=== PATIENT | female | born 1940 | race Caucasian/White ===

== ENCOUNTER → 2019-03-07 | Outpatient (CLI) | payer OTHER ==
--- NOTE | 2019-03-07 12:26 | 2DMMODE ---
[facility] [place] [address] 2 D/M-MODE ECHOCARDIOGRAM Name: SHEN BRITTON Room #: REG [facility]#: [id number] Admission: 03/07/19 Attend Phys: Tayo Salter Discharge: Date of : 38 Date of Service: 03/07/19 1226 Report #: [id number] THIS REPORT FOR: //name// APPROVED REPORT Study performed: 03/07/2019 11:20:28 EXAM: Comprehensive 2D, Doppler, and color-flow Echocardiogram Patient Location: Out-Patient Room #: Echo lab 2 Status: routine BSA: 1.65 HR: 69 bpm BP: 138/88 mmHg Rhythm: NSR Other Information Study Quality: Good Indications CVA/TIA Echo Enhancing Agent Indication: Rule out Shunt Agent(s) / Amount(s) Used: Agitated Saline 7 cc 2D Dimensions RVDd: 28.54 mm IVSd: 10.34 (7-11mm) LVOT Diam: 19.35 (18-24mm) LVDd: 38.24 mm PWd: 10.42 (7-11mm) Ascending Ao: 31.52 (22-36mm) LVDs: 26.52 (25-40mm) Aortic Root: 28.09 mm IVC: 12.00 mm Volumes Left Atrial Volume (Systole) Single Plane 4CH: 34.32 mL Single Plane 2CH: 40.83 mL LA ESV Index: 27.00 mL/m2 Aortic Valve AoV Peak Jason.: 1.25 m/s AO Peak Gr.: 6.20 mmHg LVOT Max P.55 mmHg LVOT Max V: 0.94 m/s OSORIO Vmax: 2.22 cm2 [facility] [address] [place] [address] 2 D/M-MODE ECHOCARDIOGRAM Name: SHEN BRITTON [id number] Admission: 03/07/19 Attend Phys: Tayo Salter Discharge: Date of : 38 Date of Service: 03/07/19 1226 Report #: [id number] Mitral Valve E/A Ratio: 0.6 MV Decel. Time: 361.79 ms MV E Max Jason.: 0.59 m/s MV A Jason.: 0.93 m/s MV PHT: 104.92 ms IVRT: 175.32 ms Pulmonary Valve PV Peak Jason.: 0.76 m/s PV Peak Gr.: 2.33 mmHg Pulmonary Vein P Vein S: 0.66 m/s P Vein A: 0.45 m/s P Vein D: 0.28 m/s P Vein A Dur.: 152.2 msec P Vein S/D Ratio: 2.36 Tricuspid Valve TR Peak Jason.: 2.54 m/s TR Peak Gr.: 25.81 mmHg PA Pressure: 30.00 mmHg Left Ventricle The left ventricle is normal size. There is normal LV segmental wall motion. There is normal left ventricular wall thickness. Left ventricular systolic function is normal. The left ventricular ejection fraction is within the normal range. LVEF is 55-60%. Grade I - abnormal relaxation pattern. Right Ventricle The right ventricle is normal size. The right ventricular systolic function is normal. Atria The left atrium size is normal. Interatrial septum is intact without evidence of ASD or PFO. The right atrium size is normal. Aortic Valve The aortic valve is normal in structure. No aortic regurgitation is present. There is no aortic valvular stenosis. Mitral Valve The mitral valve is normal in structure. Trace mitral regurgitation. No evidence of mitral valve stenosis. Tricuspid Valve The tricuspid valve is normal in structure. There is trace tricuspid [facility] [address] [place] [address] 2 D/M-MODE ECHOCARDIOGRAM Name: SHEN BRITTON Room #: REG [facility]#: [id number] Admission: 03/07/19 Attend Phys: Tayo Salter Discharge: Date of : 38 Date of Service: 03/07/19 1226 Report #: [id number] regurgitation. Estimated PAP 30 mmHg. Pulmonic Valve The pulmonary valve is normal in structure. Trace pulmonic regurgitation. Great Vessels The aortic root is normal in size. IVC is normal in size and collapses >50% with inspiration. Pericardium There is no pericardial effusion. <Conclusion> The left ventricle is normal size. There is normal left ventricular wall thickness. Left ventricular systolic function is normal. Grade I - abnormal relaxation pattern. The right ventricle is normal size. The left atrium size is normal. Interatrial septum is intact without evidence of ASD or PFO. The aortic valve is normal in structure. Trace mitral regurgitation. There is trace tricuspid regurgitation. Estimated PAP 30 mmHg. <ELECTRONICALLY SIGNED> By: Irving Stroud MD 03/07/19 1226 1226 1226 Irving Stroud MD /INF
== END ==
LOC: CV 11:07
DX: G45.9 Transient cerebral ischemic attack, unspecified (principal)

== ENCOUNTER → 2019-03-09 | Outpatient (CLI) | payer OTHER ==
--- NOTE | ~2019-03-09 | P ---
[facility] [place] [address] PROCEDURE REPORT Name: SHEN BRITTON Room #: REG [facility] Ricardo.#: [id number] Admission: 03/09/19 Attend Phys: Tayo Salter MD Discharge: Date of : 38 Report #: [id number] THIS REPORT FOR: //name// CC: Tayo Murdock PROCEDURE: Implantable loop recorder. PREOPERATIVE DIAGNOSIS: Transient ischemic attack. POSTOPERATIVE DIAGNOSIS: Transient ischemic attack. DESCRIPTION OF PROCEDURE: The patient underwent informed consent. She was prepped in a sterile fashion. I injected lidocaine at the incision site. Incision was made. Device was checked under the skin. A single layer of suture was delivered under the skin and surgical glue was placed on the outer skin layer. There were no procedure related complications. The implanted device was a [employer] model #3500, serial #[id number]. R waves were 0.6 millivolts. CONCLUSIONS: Successful implantable loop recorder insertion. By: [id number] Tayo Salter MD /nt
[2019-03-09 11:44] VITALS: BP 116/57
== END | disposition home or self-care (01) ==
LOC: CATH 11:30
DX: G45.9 Transient cerebral ischemic attack, unspecified (principal); Z98.890 Other specified postprocedural states; Z88.8 Allergy status to other drugs, medicaments and biological substances

== ENCOUNTER → 2019-09-04 | Outpatient (CLI) | payer OTHER | LOC: SJCVC 14:37 | PROVIDERS: ATTEND Internal Medicine Cardiovascular Disease | DX: I48.0 Paroxysmal atrial fibrillation (principal); I48.3 Typical atrial flutter ==

== ENCOUNTER → 2020-11-10 | Outpatient (CLI) | payer OTHER | LOC: SJCVCIMAG 09:11 | PROVIDERS: ATTEND Internal Medicine Cardiovascular Disease | DX: I08.8 Other rheumatic multiple valve diseases (principal); I48.91 Unspecified atrial fibrillation; Z79.899 Other long term (current) drug therapy ==

== ENCOUNTER → 2021-08-27 | Outpatient (CLI) | payer OTHER | LOC: HYPER 10:50 | PROVIDERS: ATTEND Emergency Medicine | DX: L89.893 Pressure ulcer of other site, stage 3 (principal); M79.671 Pain in right foot; F03.90 Unspecified dementia, unspecified severity, without behavioral disturbance, psychotic disturbance, mood disturbance, and anxiety; Z87.891 Personal history of nicotine dependence ==